=== PATIENT | male | born 1955 | race Caucasian/White ===

== ENCOUNTER 2018-09-24 13:24 | Emergency (ER) | payer BC ==
--- NOTE | 2018-09-24 16:17 | EDM.PDOC ---
ED HPI GENERAL MEDICAL PROBLEM - General Chief Complaint: Eye Problems Stated Complaint: PAIN ABOVE EYE Time Seen by Provider: 09/24/18 14:25 Source of Information: Reports: Patient History Limitations: Reports: No Limitations - History of Present Illness INITIAL COMMENTS - FREE TEXT/NARRATIVE: pt arrived with a history of about 2 monthes of having flashes of shooting pain in the left eye. This occurs in the upper lid area. This is very sharp and gives him a sensation of dizziness and then it goes away. He has had thhese as much as a month apart. Today he has had about 8 episodes. He was driving and decided that he did not want to drive anymore. Onset: Today Duration: Day(s):, Other ( these are much more frequent today. ) Location: Reports: Face Associated Symptoms: Reports: No Other Symptoms - Related Data Allergies Allergy/AdvReac Type Severity Reaction Status Date / Time No Known Allergies Allergy Verified 09/24/18 14:14 Home Meds: Home Meds Amoxicillin/Potassium Clav [Amox-Clav 875-125 mg Tablet] 09/24/18 [History] Past Medical History - Past Health History Medical/Surgical History: Denies Medical/Surgical History Respiratory History: Reports: Asthma Social & Family History - Tobacco Use Smoking Status *Q: Never Smoker ED ROS GENERAL - Review of Systems Review Of Systems: See Below Constitutional: Reports: No Symptoms HEENT: Reports: No Symptoms Respiratory: Reports: No Symptoms Cardiovascular: Reports: No Symptoms Endocrine: Reports: No Symptoms GI/Abdominal: Reports: No Symptoms : Reports: No Symptoms Musculoskeletal: Reports: No Symptoms Skin: Reports: No Symptoms Neurological: Reports: Other (pt ias having episodes of sharp shooting pain in the left upper eye lid area. This is severe enough at times he feels like he is going to be dizzy. He does have a history of migraine headaches but he has not had symptoms like this. He has had numerous episodes today. ) ED EXAM GENERAL W FULL EYE - Physical Exam Exam: See Below Text/Narrative:: Pt i is having sharp shooting pain into the upper eye lid on the left. These just last a second and then it disappears. He has no visual difficulty. Pt has had numerous episodes today. Exam Limited By: No Limitations General Appearance: Alert, Mild Distress, Other (pupils are equal and reactive. The fundi of the left eye appears normal. ) Nose: Normal Inspection Throat/Mouth: Normal Inspection Head: Atraumatic Neck: Normal Inspection Respiratory/Chest: No Respiratory Distress Cardiovascular: Regular Rate, Rhythm GI/Abdominal: Soft, Non-Tender (Male) Exam: Deferred (Female) Exam: Deferred Rectal (Males) Exam: Deferred Back Exam: Normal Inspection Extremities: Normal Inspection Neurological: Other (no other findings are noted. ) Course - Vital Signs Last Recorded V/S: Last Vital Signs Temp 36.3 C 09/24/18 14:21 Pulse 60 09/24/18 14:21 Resp 14 09/24/18 14:21 BP 161/87 H 09/24/18 14:21 Pulse Ox 98 09/24/18 14:21 - Orders/Labs/Meds Orders: Active Orders 24 hr Category Date Time Status Head wo Cont [CT] Stat Exams 09/24/18 14:47 Taken - Re-Assessments/Exams Free Text/Narrative Re-Assessment/Exam: 09/24/18 16:23 cat scan of the head was normal. I feel this is a peripheral nerve issue. Departure - Departure Time of Disposition: 16:16 Disposition: Home, Self-Care 01 Condition: Fair Clinical Impression: Neuralgia - Discharge Information Referrals: Derrick Singh MD [Primary Care Provider] - Forms: ED Department Discharge Care Plan Goals: appt with a neurologist in [place] , -- will call pt Wednesday. If these should get worse he will call me tomorrow. - My Orders Last 24 Hours: My Active Orders 09/24/18 14:47 Head wo Cont [CT] Stat - Assessment/Plan Last 24 Hours: My Active Orders 09/24/18 14:47 Head wo Cont [CT] Stat
== END 2018-09-24 16:34 | disposition home or self-care (01) ==
LOC: JP.ED 13:24
DX: M79.2 Neuralgia and neuritis, unspecified (principal)
CPT/HCPCS: 70450; 99284-25

== ENCOUNTER 2019-04-28 06:18 | Day surgery (SDC) | payer BC ==
[2019-04-28] MEDS ORDERED: fentaNYL 100 MCG/2 ML SDV ONE (07:07)
[2019-04-28] MEDS ORDERED: Midazolam 1 MG/ML 2 ML SDV ONE (07:07)
[2019-04-28] MEDS ORDERED: Propofol 200 MG/20 ML SDV ONE (07:07)
[2019-04-28] MEDS ORDERED: Sodium Chloride 0.9% 1,000 ML IV SCH (07:30)
--- NOTE | 2019-04-28 13:50 | OR ---
DATE OF PROCEDURE: 04/28/2019 SURGEON: Robb Stevens MD PROCEDURE: Colonoscopy. FINDINGS: Normal colonoscopy. PREOPERATIVE DIAGNOSIS: Screening colonoscopy. POSTOPERATIVE DIAGNOSIS: Screening colonoscopy. RISKS: Risks, benefits, alternatives, and limitations including, but not limited to infection, bleeding, and perforation were explained to the patient and wished to proceed. PROCEDURE IN DETAIL: The patient was placed in left lateral decubitus position. Digital rectal exam was performed without abnormality. Scope was introduced and advanced atraumatically to the ileocecal valve. Photo was taken of this. The scope was brought back through the ascending, transverse, descending colon, and retroflexed. No evidence of old or new blood. No masses. No polyps. No diverticulitis. No colitis. No abnormalities on retroflexion. The patient tolerated the procedure well. Robb Stevens MD /[id number]
== END 2019-04-28 09:11 | disposition home or self-care (01) ==
LOC: JP.SDS 06:18
PROVIDERS: ATTEND Surgery
DX: Z12.11 Encounter for screening for malignant neoplasm of colon (principal); E78.00 Pure hypercholesterolemia, unspecified; K21.9 Gastro-esophageal reflux disease without esophagitis; J45.909 Unspecified asthma, uncomplicated
CPT/HCPCS: 45378; J2250; J2704; J3010; J7030

== ENCOUNTER 2020-11-08 20:42 | Emergency (ER) | payer BC ==
[2020-11-08] MEDS ORDERED: Lidocaine 2% Jelly 10 ML Urojet MUCMEM ONE (20:58)
--- NOTE | 2020-11-08 21:42 | EDM.PDOC ---
ED HPI GENERAL MEDICAL PROBLEM - General Chief Complaint: Genitourinary Problem Stated Complaint: NEEDS A CATHETER Time Seen by Provider: 11/08/20 21:38 Source of Information: Reports: Patient, RN Notes Reviewed History Limitations: Reports: No Limitations - History of Present Illness INITIAL COMMENTS - FREE TEXT/NARRATIVE: 65-year-old gentleman presents emergency department day with complaint of difficulty with urination, he has known history of prostate cancer with metastases., He states most of the day he has been unable to pass urine, he is on Flomax did have to have a catheter placed 1 time before Lower Abdominal Pain Score (Numeric/FACES): 5 - Related Data Allergies Allergy/AdvReac Type Severity Reaction Status Date / Time No Known Allergies Allergy Verified 11/08/20 20:55 Home Meds: Home Meds Tamsulosin HCl 1 tab PO DAILY 11/08/20 [History] Past Medical History HEENT History: Reports: Otitis Media Respiratory History: Reports: Asthma Gastrointestinal History: Reports: GERD, Hemorrhoids Genitourinary History: Reports: Retention, Urinary, Other (See Below) Other Genitourinary History: recent stage 4 prostate ca Musculoskeletal History: Reports: Arthritis Neurological History: Reports: Concussion, Migraines Oncologic (Cancer) History: Reports: Prostate - Infectious Disease History Infectious Disease History: Reports: Chicken Pox, Measles - Past Surgical History HEENT Surgical History: Reports: None Respiratory Surgical History: Reports: None GI Surgical History: Reports: Colonoscopy Male Surgical History: Reports: None Neurological Surgical History: Reports: None Musculoskeletal Surgical History: Reports: None Dermatological Surgical History: Reports: None Social & Family History - Family History Cardiac: Reports: [place] Oncologic: Reports: Prostate - Tobacco Use Tobacco Use Status *Q: Never Tobacco User - Caffeine Use Caffeine Use: Reports: Soda - Recreational Drug Use Recreational Drug Use: Yes ED ROS GENERAL - Review of Systems Review Of Systems: See Below Constitutional: Reports: No Symptoms Respiratory: Reports: No Symptoms Cardiovascular: Reports: No Symptoms GI/Abdominal: Reports: Abdominal Pain : Reports: Urinary Retention ED EXAM, RENAL/ - Physical Exam Exam: See Below Exam Limited By: No Limitations General Appearance: Alert, WD/WN, No Apparent Distress Respiratory/Chest: No Respiratory Distress GI/Abdominal: Soft, Non-Tender Course - Vital Signs Last Recorded V/S: Last Vital Signs Temp 98.0 F 11/08/20 20:58 Pulse 66 11/08/20 20:58 Resp 16 11/08/20 20:58 BP 155/89 H 11/08/20 20:58 Pulse Ox 98 11/08/20 20:58 - Orders/Labs/Meds Orders: Active Orders 24 hr Category Date Time Status Garza Catheter Insertion [Insert Urinary Catheter] [OM. Care 11/08/20 21:30 Ordered PC] Q24H Urinary Catheter Assessment [RC] ASDIRECTED Care 11/08/20 21:18 Active Meds: Medications Discontinued Medications Generic Name Dose Route Start Last Admin Trade Name Misti PRN Reason Stop Dose Admin Lidocaine HCl 10 ml 11/08/20 20:58 11/08/20 21:03 Xylocaine 2% Jelly MUCMEM 11/08/20 20:59 10 ml ONETIME ONE Administration Departure - Departure Time of Disposition: 21:41 Disposition: Home, Self-Care 01 Condition: Fair Clinical Impression: Urinary retention - Discharge Information Instructions: Acute Urinary Retention, Male Referrals: Derrick Singh MD [Primary Care Provider] - Additional Instructions: Continue to use your leg bag, please follow-up with your primary care next week call return to the emergency department worsening of symptoms Sepsis Event Note (ED) - Evaluation Sepsis Screening Result: No Definite Risk - Focused Exam Vital Signs: Vital Signs Temp Pulse Resp BP Pulse Ox 11/08/20 20:58 98.0 F 66 16 155/89 H 98 - My Orders Last 24 Hours: My Active Orders 11/08/20 21:18 Urinary Catheter Assessment [RC] ASDIRECTED 11/08/20 21:30 Garza Catheter Insertion [Insert Urinary Catheter] [OM.PC] Q24H - Assessment/Plan Last 24 Hours: My Active Orders 11/08/20 21:18 Urinary Catheter Assessment [RC] ASDIRECTED 11/08/20 21:30 Garza Catheter Insertion [Insert Urinary Catheter] [OM.PC] Q24H Plan: Assessment Acuity = acute Site and laterality = urinary retention Etiology = probably related to BPH Manifestations = abdominal pain now resolved Location of injury = Home Lab values = none Plan Catheter was passed set up with a leg bag he will follow-up with his primary care next week This note was dictated using [employer] voice recognition software please call with any questions on syntax or grammar.
== END 2020-11-08 22:00 | disposition home or self-care (01) ==
LOC: JP.ED 20:42
DX: R33.9 Retention of urine, unspecified (principal); J45.909 Unspecified asthma, uncomplicated
CPT/HCPCS: 51702; 99283; 99283-25

== ENCOUNTER 2020-11-10 09:19 | Emergency (ER) | payer BC ==
--- NOTE | 2020-11-10 10:50 | EDM.PDOC ---
ED HPI GENERAL MEDICAL PROBLEM - General Chief Complaint: Abdominal Pain Stated Complaint: LEFT SIDE PAIN Time Seen by Provider: 11/10/20 10:40 Source of Information: Reports: Patient, Old Records, RN History Limitations: Reports: No Limitations - History of Present Illness INITIAL COMMENTS - FREE TEXT/NARRATIVE: 65 yo male here with LUQ pain intermittently for a few weeks. Pain is worsening. Is being tx'd for prostate CA/BPH and has an indwelling resendiz. Stools hard. Eating less than normal. No fever. Onset: Gradual, Unknown/Unsure Duration: Week(s):, Getting Worse, Intermittent, Waxing/Waning Location: Reports: Abdomen Quality: Reports: Sharp Severity: Moderate Improves with: Reports: None Worsens with: Reports: Other (time) Context: Reports: Other (See HPI) Associated Symptoms: Reports: No Other Symptoms Treatments ENGINE TURNER: Reports: Other (see below) (none) - Related Data Allergies Allergy/AdvReac Type Severity Reaction Status Date / Time No Known Allergies Allergy Verified 11/10/20 11:01 Home Meds: Home Meds Tamsulosin HCl 1 tab PO DAILY 11/08/20 [History] Past Medical History - Past Health History Medical/Surgical History: Denies Medical/Surgical History HEENT History: Reports: Otitis Media Respiratory History: Reports: Asthma Gastrointestinal History: Reports: GERD, Hemorrhoids Genitourinary History: Reports: Retention, Urinary, Other (See Below) Other Genitourinary History: recent stage 4 prostate ca Musculoskeletal History: Reports: Arthritis Neurological History: Reports: Concussion, Migraines Oncologic (Cancer) History: Reports: Prostate - Infectious Disease History Infectious Disease History: Reports: Chicken Pox, Measles - Past Surgical History HEENT Surgical History: Reports: None Respiratory Surgical History: Reports: None GI Surgical History: Reports: Colonoscopy Male Surgical History: Reports: None Neurological Surgical History: Reports: None Musculoskeletal Surgical History: Reports: None Dermatological Surgical History: Reports: None Social & Family History - Family History Cardiac: Reports: [place] Oncologic: Reports: Prostate - Caffeine Use Caffeine Use: Reports: Soda ED ROS GENERAL - Review of Systems Review Of Systems: See Below Constitutional: Reports: No Symptoms HEENT: Reports: No Symptoms Respiratory: Reports: No Symptoms Cardiovascular: Reports: No Symptoms GI/Abdominal: Reports: Abdominal Pain, Constipation. Denies: Black Stool, Bloody Stool, Diarrhea, Distension, Vomiting : Reports: No Symptoms Musculoskeletal: Reports: No Symptoms Skin: Reports: No Symptoms Neurological: Reports: No Symptoms ED EXAM, GI/ABD - Physical Exam Exam: See Below Exam Limited By: No Limitations General Appearance: Alert, WD/WN, No Apparent Distress Eyes: Bilateral: Normal Appearance Ears: Normal External Exam, Normal Canal, Hearing Grossly Normal, Normal TMs Nose: Normal Inspection, No Blood Throat/Mouth: Normal Inspection, Normal Lips, Normal Oropharynx, Normal Voice, No Airway Compromise Head: Atraumatic, Normocephalic Neck: Normal Inspection Respiratory/Chest: No Respiratory Distress, Lungs Clear, Normal Breath Sounds, No Accessory Muscle Use Cardiovascular: Regular Rate, Rhythm, No Edema GI/Abdominal Exam: Normal Bowel Sounds, Soft, Non-Tender, No Distention. No: Distended Back Exam: Normal Inspection. No: CVA Tenderness (R), CVA Tenderness (L) Extremities: Normal Inspection, Normal Range of Motion, Non-Tender, No Pedal Edema Neurological: Alert, Oriented, CN II-XII Intact, Normal Cognition, No Motor/Sensory Deficits Psychiatric: Normal Affect, Normal Mood Skin Exam: Warm, Dry, Intact, Normal Color, No Rash Course - Vital Signs Text/Narrative:: Called [facility] @ [id number] regarding transfer, Dr. Trotter in the ER accepts in transfer. Last Recorded V/S: Last Vital Signs Temp 36.6 C 11/10/20 11:10 Pulse 65 11/10/20 11:10 Resp 18 11/10/20 11:10 BP 153/85 H 11/10/20 11:10 Pulse Ox 99 11/10/20 11:10 - Orders/Labs/Meds Orders: Active Orders 24 hr Category Date Time Status Abdomen 1V Flat [CR] Stat Exams 11/10/20 10:46 Taken Labs: Laboratory Tests 11/10/20 11/10/20 11/10/20 Range/Units 10:55 10:55 11:39 WBC 6.4 (4.5-11.0) K/uL RBC 4.56 (4.30-5.90) M/uL Hgb 12.8 (12.0-15.0) g/dL Hct 38.5 L (40.0-54.0) % MCV 84 (80-98) fL MCH 28 (27-31) pg MCHC 33 (32-36) % Plt Count 186 (150-400) K/uL Sodium 132 L (140-148) mmol/L Potassium 3.9 (3.6-5.2) mmol/L Chloride 98 L (100-108) mmol/L Carbon Dioxide 21 (21-32) mmol/L Anion Gap 16.9 H (5.0-14.0) mmol/L BUN 13 (7-18) mg/dL Creatinine 1.1 (0.8-1.3) mg/dL Est Cr Clr Drug Dosing 75.44 mL/min Estimated GFR (MDRD) > 60 (>60) Glucose 125 H (74-106) mg/dL Calcium 7.8 L (8.5-10.1) mg/dL Urine Color Yellow (YELLOW) Urine Appearance Clear (CLEAR) Urine pH 5.5 (5.0-8.0) Ur Specific [place] >= 1.030 (1.008-1.030) Urine Protein 100 H (NEGATIVE) mg/dL Urine Glucose (UA) Negative (NEGATIVE) mg/dL Urine Ketones 80 H (NEGATIVE) mg/dL Urine Occult Blood Moderate H (NEGATIVE) Urine Nitrite Negative (NEGATIVE) Urine Bilirubin Small H (NEGATIVE) Urine Urobilinogen 0.2 (0.2-1.0) EU/dL Ur Leukocyte Esterase Negative (NEGATIVE) Urine RBC 20-30 H (0-5) Urine WBC 0-5 (0-5) Ur Epithelial Cells Rare Amorphous Sediment Few Urine Bacteria Moderate Urine Mucus Few Meds: Medications Discontinued Medications Generic Name Dose Route Start Last Admin Trade Name Freq PRN Reason Stop Dose Admin Hydromorphone HCl 1 mg 11/10/20 13:40 Dilaudid IVPUSH 11/10/20 13:41 ONETIME ONE Sodium Chloride 1,000 mls @ 999 mls/hr 11/10/20 11:58 11/10/20 12:43 Normal Saline IV 11/10/20 12:58 999 mls/hr .BOLUS ONE Administration Ketorolac Tromethamine 60 mg 11/10/20 11:30 11/10/20 11:38 Toradol IM 11/10/20 11:31 60 mg ONETIME ONE Administration Ondansetron HCl 4 mg 11/10/20 10:56 11/10/20 11:11 Zofran Odt PO 11/10/20 10:57 4 mg ONETIME ONE Administration Ondansetron HCl Confirm 11/10/20 10:58 Zofran Odt Administered 11/10/20 10:59 Dose 4 mg .ROUTE .STK-MED ONE Ondansetron HCl 4 mg 11/10/20 12:12 11/10/20 12:43 Zofran IVPUSH 11/10/20 12:13 4 mg ONETIME ONE Administration - Radiology Interpretation Free Text/Narrative:: Single view abdomen X-ray-neg CT abd/pelvis without IV contrast- IMPRESSION Left-sided hydronephrosis and hydroureter. No renal/ureteral calculus is ident ified. A Resendiz catheter is present within the urinary bladder. A recently passed stone cannot be excluded. Large pelvic mass identified with extensive abdominal and pelvic lymphadenopathy. Marked heterogeneity and multiple sclerotic lesions of the skeleton are identified, worrisome for skeletal metastases. These findings are highly worrisome for malignancy. These findings were discussed with Dr. Burden at the time of this dictation. The patient apparently has known metastatic prostate cancer. Please note that all CT scans at this facility use dose modulation, iterative reconstruction, and/or weight-based dosing when appropriate to reduce radiation dose to as low as reasonably achievable. Dictated by Ct Jimenez MD @ Nov 10 2020 1:06PM (Electronic Signature) Departure - Departure Time of Disposition: 14:00 Disposition: DC/Tfer to Acute Hospital 02 Condition: Fair Clinical Impression: Hydronephrosis due to obstruction of ureter, Renal colic on left side, Prostate cancer metastatic to bone - Discharge Information *PRESCRIPTION DRUG MONITORING PROGRAM REVIEWED*: No *COPY OF PRESCRIPTION DRUG MONITORING REPORT IN PATIENT ADONIS: No Referrals: Derrick Singh MD [Primary Care Provider] - Forms: ED Department Discharge Additional Instructions: Go directly to the ER at [facility] to be seen/admitted. Don't eat or drink en route. No driving for [employer]. Sepsis Event Note (ED) - Focused Exam Vital Signs: Vital Signs Temp Pulse Resp BP Pulse Ox 11/10/20 11:10 36.6 C 65 18 153/85 H 99 11/10/20 10:42 36.6 C 65 18 153/85 H 99 11/10/20 10:35 36.6 C 65 18 153/85 H 99 - My Orders Last 24 Hours: My Active Orders 11/10/20 10:46 Abdomen 1V Flat [CR] Stat - Assessment/Plan Last 24 Hours: My Active Orders 11/10/20 10:46 Abdomen 1V Flat [CR] Stat
[2020-11-10] MEDS ORDERED: Ondansetron 4 MG Tab.DIS PO ONE (10:56)
[2020-11-10] MEDS ORDERED: Ondansetron 4 MG Tab.DIS ONE (10:58)
[2020-11-10] MEDS ORDERED: Ketorolac 60 MG/2 ML SDV IM ONE (11:30)
[2020-11-10] MEDS ORDERED: Sodium Chloride 0.9% 1,000 ML IV ONE (11:58)
[2020-11-10] MEDS ORDERED: Ondansetron 4 MG/2 ML SDV IVPUSH ONE (12:12)
--- NOTE | 2020-11-10 13:39 | CRLCT ---
Indication: Intermittent left sided abdominal pain with hematuria. Technique: Multiple contiguous axial images were obtained from the lung bases through the symphysis pubis without intravenous contrast enhancement. Please note that all CT scans at this facility use dose modulation, iterative reconstruction, and/or weight-based dosing when appropriate to reduce radiation dose to as low as reasonably achievable. Comparison: None Findings: The lung bases are clear. The heart is normal in size. Mild diffuse fatty infiltration of the liver is identified. The unenhanced liver, spleen, gallbladder, pancreas, adrenals, and right kidney are otherwise grossly normal. No intrahepatic biliary ductal dilatation is identified. Left-sided hydronephrosis and hydroureter identified. The ureter is dilated to the level of the bladder. No stone is identified within the left ureter or left renal collecting system. In the pelvis, Garza catheter is present within the urinary bladder. No stones are identified within the bladder. The prostate gland is enlarged. The small and large bowel are normal in caliber. A large soft tissue mass is identified in the pelvis adjacent to the sigmoid colon to the left of midline. This measures approximately 8.0 x 6.3 centimeters in size. Numerous lymph nodes are identified surrounding this. This is worrisome for malignancy. This does include a large lymph node in just inferior to the bifurcation of the aorta measuring approximately 2.7 x 3.5 centimeters in size, best seen on image number 92, series 2. A left periaortic lymph node is identified measuring 2.8 x 2.6 centimeters in size, best identified on image number 58, series 2. The aorta is normal in caliber. Marked heterogeneity of the skeleton is identified. Skeletal metastases cannot be excluded. IMPRESSION Left-sided hydronephrosis and hydroureter. No renal/ureteral calculus is identified. A Garza catheter is present within the urinary bladder. A recently passed stone cannot be excluded. Large pelvic mass identified with extensive abdominal and pelvic lymphadenopathy. Marked heterogeneity and multiple sclerotic lesions of the skeleton are identified, worrisome for skeletal metastases. These findings are highly worrisome for malignancy. These findings were discussed with Dr. Burden at the time of this dictation. The patient apparently has known metastatic prostate cancer. Please note that all CT scans at this facility use dose modulation, iterative reconstruction, and/or weight-based dosing when appropriate to reduce radiation dose to as low as reasonably achievable. Dictated by Ct Jimenez MD @ Nov 10 2020 1:06PM Signed by Dr. Ct Jimenez @ Nov 10 2020 1:38PM
[2020-11-10] MEDS ORDERED: HYDROmorphone 1 MG/ML Syringe IVPUSH ONE (13:40)
--- NOTE | 2020-11-11 10:04 | CR ---
Abdomen 1V Flat CLINICAL HISTORY: Left upper quadrant pain FINDINGS: Small intestinal gas pattern is nonacute. There is some gas and feces seen throughout the colon. There are sclerotic bone lesions throughout the pelvis and sacrum suggesting metastatic disease. IMPRESSION: Nonspecific intestinal gas pattern Sclerotic bone lesions in the pelvis and sacrum suggest bone metastasis
== END 2020-11-10 14:37 ==
LOC: JP.ED 09:19
DX: C61 Malignant neoplasm of prostate (principal); C79.51 Secondary malignant neoplasm of bone; N13.1 Hydronephrosis with ureteral stricture, not elsewhere classified; J45.909 Unspecified asthma, uncomplicated
CPT/HCPCS: 36415; 74018; 74176; 80048; 81001; 85027; 96372; 96374; 96375; 99285; A9270; J1170; J1885; J2405; J7030

== ENCOUNTER 2021-10-06 14:13 | Emergency (ER) | payer BC ==
[2021-10-06] MEDS ORDERED: Aspirin 81 MG Tab.Chew PO ONE (15:20)
[2021-10-06] MEDS ORDERED: Potassium Chloride 20 MEQ in Premix Bag 1 BAG IV ONE (16:01)
[2021-10-06] MEDS ORDERED: Magnesium Sulfate/Water 2 GM in Premix Bag 1 BAG IV ONE (16:02)
[2021-10-06] MEDS ORDERED: Potassium Chloride 20 MEQ Tab.ER PO ONE (16:02)
[2021-10-06] MEDS ORDERED: Potassium Chloride 20 MEQ, Lidocaine 1% 2 ML in Sodium Chloride 0.9% 100 ML IV ONE (17:00)
== END 2021-10-06 19:47 | disposition home or self-care (01) ==
LOC: JP.ED 14:13
DX: R07.89 Other chest pain (principal); I10 Essential (primary) hypertension; E87.6 Hypokalemia; K21.9 Gastro-esophageal reflux disease without esophagitis; Z79.899 Other long term (current) drug therapy
CPT/HCPCS: 36415; 71045; 80048; 84484; 85025; 93005; 96365; 96366; 96368; 99285; A9270; J2001; J3475; J3480

== ENCOUNTER 2021-10-10 20:56 | Emergency (ER) | payer BC ==
[2021-10-10] MEDS ORDERED: Labetalol 100 MG Tab PO STA (21:44)
== END 2021-10-10 22:47 | disposition home or self-care (01) ==
LOC: JP.ED 20:56
DX: I16.0 Hypertensive urgency (principal); I10 Essential (primary) hypertension; Z79.899 Other long term (current) drug therapy
CPT/HCPCS: 99283; A9270-GY

== ENCOUNTER 2021-10-11 05:12 | Emergency (ER) | payer BC ==
[2021-10-11] MEDS: Labetalol 100 MG Tab PO ONE (06:07)
[2021-10-11] MEDS: Potassium Chloride 20 MEQ Tab.ER PO ONE ×2 (06:09→09:19)
[2021-10-11] MEDS ORDERED: amLODIPine 5 MG Tab PO ONE (06:45)
[2021-10-11] MEDS ORDERED: Sodium Chloride 0.9% 10 ML Syringe FLUSH PRN (06:51)
[2021-10-11] MEDS ORDERED: Labetalol 100 MG in Sodium Chloride 0.9% 80 ML IV SCH (07:00)
[2021-10-11] MEDS: Acetaminophen 500 MG Tab PO ONE (09:19)
== END 2021-10-11 10:20 | disposition home or self-care (01) ==
LOC: JP.ED 05:12
DX: I16.0 Hypertensive urgency (principal); E87.6 Hypokalemia; I10 Essential (primary) hypertension; Z79.899 Other long term (current) drug therapy
CPT/HCPCS: 36415; 70450; 71046; 71046-26; 80053; 81001; 83735; 83835; 84244; 84443; 84484; 85025; 93005; 93010; 99284; 99285-25; A9270-GY

== ENCOUNTER 2021-10-27 09:35 | Emergency (ER) | payer BC ==
[2021-10-27] MEDS ORDERED: Sodium Chloride 0.9% 10 ML Syringe FLUSH PRN (09:50)
[2021-10-27] MEDS ORDERED: Potassium Chloride 20 MEQ Tab.ER PO ONE (10:50)
== END 2021-10-27 11:30 | disposition home or self-care (01) ==
LOC: JP.ED 09:35
DX: I10 Essential (primary) hypertension (principal); E87.6 Hypokalemia; R63.1 Polydipsia; R00.1 Bradycardia, unspecified; R73.9 Hyperglycemia, unspecified; Z79.899 Other long term (current) drug therapy
CPT/HCPCS: 36415; 71046; 80048; 81001; 84484; 85025; 93005; 99285; A9270

== ENCOUNTER 2021-11-01 09:52 | Emergency (ER) | payer BC ==
[2021-11-01] MEDS: Ketorolac 10 MG Tab PO ONE (10:54)
== END 2021-11-01 10:59 | disposition home or self-care (01) ==
LOC: JP.ED 09:52
DX: R51.9 Headache, unspecified (principal); I10 Essential (primary) hypertension; J45.909 Unspecified asthma, uncomplicated; K21.9 Gastro-esophageal reflux disease without esophagitis; Z79.899 Other long term (current) drug therapy
CPT/HCPCS: 99283; A9270-GY

== ENCOUNTER 2021-12-08 06:32 | Day surgery (SDC) | payer BC ==
[2021-12-08] MEDS ORDERED: Midazolam 1 MG/ML 2 ML SDV ONE (06:46)
[2021-12-08] MEDS ORDERED: fentaNYL 100 MCG/2 ML SDV ONE (06:46)
[2021-12-08] MEDS ORDERED: Propofol 200 MG/20 ML SDV ONE (06:46)
[2021-12-08] MEDS ORDERED: Dextrose 5%-Lactated Ringers 1,000 ML IV SCH (07:30)
== END 2021-12-08 10:59 | disposition home or self-care (01) ==
LOC: JP.SDS 06:32
PROVIDERS: ATTEND Surgery
DX: K62.7 Radiation proctitis (principal); C61 Malignant neoplasm of prostate; N40.0 Benign prostatic hyperplasia without lower urinary tract symptoms
CPT/HCPCS: J2250; J2704; J3010; J7121

== ENCOUNTER 2021-12-27 09:32 | Emergency (ER) | payer BC ==
[2021-12-27] MEDS ORDERED: Aspirin 81 MG Tab.Chew PO ONE (10:08)
== END 2021-12-27 11:15 | disposition home or self-care (01) ==
LOC: JP.ED 09:32
DX: R07.9 Chest pain, unspecified (principal); I10 Essential (primary) hypertension; Z85.46 Personal history of malignant neoplasm of prostate
CPT/HCPCS: 36415; 71045; 71045-26; 80048; 84484; 85025; 93005; 93010; 99282; 99285-25; A9270-GY

== ENCOUNTER 2022-07-11 08:30 | Emergency (ER) | payer BC, OTHER ==
[2022-07-11] MEDS: Aspirin 81 MG Tab.Chew PO ONE (09:24)
[2022-07-11] MEDS: Sodium Chloride 0.9% 10 ML Syringe FLUSH PRN (09:28)
[2022-07-11] MEDS: Lisinopril 5 MG Tab PO ONE (11:40)
[2022-07-11] MEDS: Famotidine 20 MG Tab PO ONE (11:40)
== END 2022-07-11 11:50 | disposition home or self-care (01) ==
LOC: JP.ED 08:30
DX: K21.9 Gastro-esophageal reflux disease without esophagitis (principal); E87.6 Hypokalemia; D70.9 Neutropenia, unspecified; C61 Malignant neoplasm of prostate; I10 Essential (primary) hypertension; Z79.899 Other long term (current) drug therapy; Z79.84 Long term (current) use of oral hypoglycemic drugs; Z86.16 Personal history of COVID-19
CPT/HCPCS: 36415; 80048; 84484; 85025; 85379; 93005; 99284; A9270; J3490

== ENCOUNTER 2022-07-24 17:14 | Emergency (ER) | payer OTHER ==
[2022-07-24] MEDS ORDERED: cloNIDine 0.1 MG Tab PO ONE (17:42)
== END 2022-07-24 19:25 | disposition home or self-care (01) ==
LOC: JP.ED 17:14
DX: I16.0 Hypertensive urgency (principal); K21.9 Gastro-esophageal reflux disease without esophagitis; M19.90 Unspecified osteoarthritis, unspecified site; Z86.16 Personal history of COVID-19; Z79.84 Long term (current) use of oral hypoglycemic drugs; Z79.899 Other long term (current) drug therapy
CPT/HCPCS: 36415; 80048; 84484; 85025; 99283; A9270

== ENCOUNTER 2022-07-27 20:01 | Emergency (ER) | payer OTHER ==
[2022-07-27] MEDS ORDERED: Nitroglycerin 0.4 MG Tab.SL SL ONE (20:44)
[2022-07-27 21:21] LABS: ESTIMATED GFR 98 mL/min (>60); TROPONIN I HIGH SENSITIVITY 11.4 pg/mL (<=60.3)
== END 2022-07-27 22:40 | disposition home or self-care (01) ==
LOC: JP.ED 20:01
DX: R07.89 Other chest pain (principal); R51.9 Headache, unspecified; I10 Essential (primary) hypertension; E78.00 Pure hypercholesterolemia, unspecified; Z86.16 Personal history of COVID-19; Z79.899 Other long term (current) drug therapy
CPT/HCPCS: 36415; 71046; 80048; 83880; 84484; 85025; 93005; 99285; A9270

== ENCOUNTER 2022-08-24 20:48 | Emergency (ER) | payer OTHER | END 2022-08-24 21:55 | disposition home or self-care (01) | LOC: JP.ED 20:48 | DX: F41.9 Anxiety disorder, unspecified (principal); I10 Essential (primary) hypertension; E78.00 Pure hypercholesterolemia, unspecified; K21.9 Gastro-esophageal reflux disease without esophagitis; Z86.16 Personal history of COVID-19; Z79.899 Other long term (current) drug therapy | CPT/HCPCS: 99283 ==

== ENCOUNTER 2022-08-28 04:07 | Emergency (ER) | payer OTHER ==
[2022-08-28] MEDS ORDERED: Metoprolol Succinate 25 MG Tab.ER PO ONE ×2 (04:59→05:49)
== END 2022-08-28 06:31 | disposition home or self-care (01) ==
LOC: JP.ED 04:07
DX: C61 Malignant neoplasm of prostate (principal); F41.9 Anxiety disorder, unspecified; I10 Essential (primary) hypertension; E78.00 Pure hypercholesterolemia, unspecified; K21.9 Gastro-esophageal reflux disease without esophagitis; Z86.16 Personal history of COVID-19; Z79.899 Other long term (current) drug therapy; Z79.84 Long term (current) use of oral hypoglycemic drugs
CPT/HCPCS: 99283; A9270

== ENCOUNTER 2023-02-14 20:12 | Emergency (ER) | payer OTHER ==
[2023-02-14] MEDS ORDERED: Doxycycline 100 MG Cap PO ONE (22:44)
== END 2023-02-14 23:05 | disposition home or self-care (01) ==
LOC: JP.ED 20:12
DX: S70.361A Insect bite (nonvenomous), right thigh, initial encounter (principal); I10 Essential (primary) hypertension; J45.909 Unspecified asthma, uncomplicated; K21.9 Gastro-esophageal reflux disease without esophagitis; Z86.16 Personal history of COVID-19; Z79.899 Other long term (current) drug therapy; Z79.84 Long term (current) use of oral hypoglycemic drugs; W57.XXXA Bitten or stung by nonvenomous insect and other nonvenomous arthropods, initial encounter
CPT/HCPCS: 99281; A9270

== ENCOUNTER 2023-09-12 07:59 | Emergency (ER) | payer OTHER | END 2023-09-12 09:05 | disposition home or self-care (01) | LOC: JP.ED 07:59 | DX: H92.01 Otalgia, right ear (principal); E11.9 Type 2 diabetes mellitus without complications; I10 Essential (primary) hypertension; J45.909 Unspecified asthma, uncomplicated; Z79.84 Long term (current) use of oral hypoglycemic drugs; Z79.899 Other long term (current) drug therapy | CPT/HCPCS: 99282 ==